=== PATIENT | male | born 1990 | race Caucasian/White ===

== ENCOUNTER 2019-05-06 12:13 | Emergency (ER) | payer MEDICARE, MEDICAID ==
[~2019-05-06] VITALS: Ht 180.3 cm; Wt 93.2 kg
[2019-05-06] MEDS ORDERED: METHOCARBAMOL 500 MG TAB PO ONE (14:00)
[2019-05-06] MEDS ORDERED: KETOROLAC 60 MG/2 ML VIAL (J1885) IM ONE (14:00)
--- NOTE | 2019-05-06 14:56 | REP ---
REASON: Pain after trauma. PRIORS: None. FINDINGS: Three views of the shoulder were performed. The acromioclavicular and glenohumeral relationships are within normal limits. There is no acute fracture or destructive osseous lesions. Electronically Signed by Jake Mills DO 05/06/2019 04:22 P
--- NOTE | 2019-05-06 14:56 | REP ---
REASON: Pain after trauma. PRIORS: None. FINDINGS: No acute fracture or destructive osseous lesion. Electronically Signed by Jake Mills DO 05/06/2019 04:22 P
--- NOTE | 2019-05-06 14:57 | REP ---
REASON: Pain after trauma. PRIORS: None. FINDINGS: There is no acute fracture, dislocation, subluxation or joint effusion. Electronically Signed by Jake Mills DO 05/06/2019 04:22 P
[2019-05-06 15:10] VITALS: BP 117/74
[2019-05-06] MEDS ORDERED: KETO10TAB PO (15:16)
[2019-05-06] MEDS ORDERED: METH1TAB40 PO (15:16)
[2019-05-06] MEDS ORDERED: DICL1GEL3 TOP (15:17)
== END 2019-05-06 15:28 | disposition home or self-care (01) ==
LOC: M ED 12:13
DX: S43.491A Other sprain of right shoulder joint, initial encounter (principal); W19.XXXA Unspecified fall, initial encounter; Y92.018 Other place in single-family (private) house as the place of occurrence of the external cause; F17.210 Nicotine dependence, cigarettes, uncomplicated
CPT/HCPCS: 73000; 73030; 73080; 96372; 99283; J1885

== ENCOUNTER 2020-02-08 15:51 | Emergency (ER) | payer MEDICARE, MEDICAID ==
[~2020-02-08 15:51] MED LIST: DICL1GEL3 TOP; KETO10TAB PO; METH1TAB40 PO
[2020-02-08] MEDS ORDERED: ONDANSETRON 4MG/2ML VIAL As Ordered ONE (19:05)
[2020-02-08] MEDS ORDERED: MORPHINE 4 MG/ML 1ML VIAL/SYRINGE (J2270) As Ordered ONE (19:05)
[2020-03-18 09:14] LABS: HEMATOCRIT 43.3 % (42.0-52.0); MEAN CORPUSCULAR HEMOGLOBIN 30.5 pg (27.0-33.0); MEAN CORPUSCULAR HGB CONC 34.6 g/dl (32.0-36.5); MEAN CORPUSCULAR VOLUME 88.2 fl (80.0-96.0); PLATELET COUNT, AUTOMATED 206 10^3/uL (150-450); RED BLOOD COUNT 4.91 10^6/uL (4.30-6.10); WHITE BLOOD COUNT 10.9 10^3/uL (4.0-10.0)
[2020-03-19 21:42] LABS: BLOOD UREA NITROGEN 15 MG/DL (7-18); CALCIUM LEVEL 9.3 MG/DL (8.5-10.1); CARBON DIOXIDE LEVEL 26 MEQ/L (21-32); CHLORIDE LEVEL 107 MEQ/L (98-107); CK-MB VALUE MASS 3.1 NG/ML (<3.6); CPK CREATINE PHOSPHOKINASE 706 U/L (39-308); CREATININE FOR GFR 0.95 MG/DL (0.70-1.30); GLOMERULAR FILTRATION RATE > 60.0 (>60); GLUCOSE, FASTING 107 MG/DL (70-100); MB/CK RELATIVE INDEX 0.44 (< OR =4); POTASSIUM SERUM 3.8 MEQ/L (3.5-5.1); SODIUM LEVEL 143 MEQ/L (136-145); TROPONIN I < 0.02 NG/ML (< 0.10)
--- NOTE | 2020-03-23 12:05 | ECGEPIP ---
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
== END 2020-02-08 21:09 | disposition home or self-care (01) ==
LOC: M ED 15:51
DX: R07.89 Other chest pain (principal); R74.8 Abnormal levels of other serum enzymes; R11.2 Nausea with vomiting, unspecified; F17.200 Nicotine dependence, unspecified, uncomplicated; Z88.6 Allergy status to analgesic agent
CPT/HCPCS: 71046; 80048; 82550; 82553; 84484; 85027; 85379; 93005; 96374; 96375; 99284; J2270; J2405

== ENCOUNTER 2020-06-14 22:36 | Emergency (ER) | payer MEDICARE, MEDICAID ==
[~2020-06-14] VITALS: Ht 177.8 cm; Wt 104.6 kg
[2020-06-14] MEDS ORDERED: AMOX875T PO (22:43)
[2020-06-15] MEDS ORDERED: CLEO300C2 PO (00:10)
[2020-06-15] MEDS ORDERED: PRED20TA PO (00:10)
[2020-06-15] MEDS ORDERED: diphenhydrAMINE 50MG CAP PO ONE (00:15)
[2020-06-15] MEDS ORDERED: NORCO 5/325MG TABLET (BULK FOR ED) PO ONE (00:15)
[2020-06-15] MEDS ORDERED: predniSONE 20 MG TAB PO ONE (00:15)
[2020-06-15] MEDS ORDERED: CLINDAMYCIN 150MG CAPSULE PO ONE (00:15)
[2020-06-15] MEDS ORDERED: NORCO, ANEXSIA 5/325MG TABLET (HYDROcodone/ACETAMINOPHEN) PO ONE (00:15)
[2020-06-15 00:21] VITALS: BP 153/86
== END 2020-06-15 00:30 | disposition home or self-care (01) ==
LOC: M ED 22:36
DX: K04.7 Periapical abscess without sinus (principal); K02.9 Dental caries, unspecified; J45.909 Unspecified asthma, uncomplicated; Z87.891 Personal history of nicotine dependence; Z79.899 Other long term (current) drug therapy

== ENCOUNTER → 2020-07-29 | Outpatient (CLI) | payer SELFPAY ==
[~2020-07-29] MED LIST changes: +AMOX875T PO; +CLEO300C2 PO; +PRED20TA PO
== END ==
LOC: M LABSMTC 08:32
PROVIDERS: ATTEND Pediatrics
DX: Z20.822 Contact with and (suspected) exposure to COVID-19 (principal)

== ENCOUNTER 2020-11-21 11:41 | Emergency (ER) | payer MEDICARE, MEDICAID ==
[~2020-11-21] VITALS: Ht 180.3 cm; Wt 100.5 kg
[~2020-11-21 11:41] MED LIST changes: +METH-1164 PO; -METH1TAB40 PO
--- NOTE | 2020-11-21 13:01 | REP ---
INDICATION: medial pain, gave out COMPARISON: None TECHNIQUE: Five views FINDINGS: The compartments are symmetric and relatively well maintained. There is no acute fracture or destructive osseous lesion. IMPRESSION: Negative exam <Electronically signed by Jake Mills > 11/21/20 [id number]
[2020-11-21] MEDS ORDERED: NAPR-837 PO (13:41)
[2020-11-21 13:51] VITALS: BP 133/75
--- NOTE | 2020-11-22 02:40 | ECGEPIP ---
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
== END 2020-11-21 14:12 | disposition home or self-care (01) ==
LOC: M ED 11:41
DX: S83.91XA Sprain of unspecified site of right knee, initial encounter (principal); X58.XXXA Exposure to other specified factors, initial encounter; Y92.89 Other specified places as the place of occurrence of the external cause; Y93.89 Activity, other specified; Y99.8 Other external cause status

== ENCOUNTER 2020-12-15 17:58 | Emergency (ER) | payer MEDICARE, MEDICAID ==
[~2020-12-15] VITALS: Ht 180.3 cm; Wt 95.5 kg
[~2020-12-15 17:58] MED LIST changes: +NAPR-837 PO
[2020-12-15] MEDS ORDERED: OXYC1TAB23 PO (18:05)
[2020-12-15] MEDS ORDERED: NS 1,000 ML IV ONE (20:10)
[2020-12-15 20:46] LABS: BASO # 0.1 10^3/uL (0.0-0.2); BASO % 0.5 % (0.0-1.0); EOS # 0.6 10^3/uL (0.0-0.5); EOS % 5.4 % (0.0-3.0); HEMATOCRIT 42.4 % (42.0-52.0); HEMOGLOBIN 14.8 g/dl (13.5-17.5); LYMPH # 2.7 10^3/uL (1.5-5.0); LYMPH % 26.2 % (24.0-44.0); MEAN CORPUSCULAR HEMOGLOBIN 30.2 pg (27.0-33.0); MEAN CORPUSCULAR HGB CONC 34.9 g/dl (32.0-36.5); MEAN CORPUSCULAR VOLUME 86.5 fl (80.0-96.0); MONO # 0.8 10^3/uL (0.0-0.8); MONO % 7.5 % (2.0-8.0); NEUTROPHILS # 6.1 10^3/uL (1.5-8.5); PLATELET COUNT, AUTOMATED 253 10^3/uL (150-450); WHITE BLOOD COUNT 10.2 10^3/uL (4.0-10.0)
[2020-12-15] MEDS ORDERED: KETOROLAC 30 MG/ML 1ML VIAL IV ONE (20:50)
[2020-12-15 21:11] LABS: ALBUMIN 3.9 GM/DL (3.2-5.2); BILIRUBIN,DIRECT 0.1 MG/DL (0.0-0.2); BILIRUBIN,TOTAL 0.3 MG/DL (0.2-1.0); TOTAL PROTEIN 7.4 GM/DL (6.4-8.2)
--- NOTE | 2020-12-15 21:32 | REPVR ---
PROCEDURE INFORMATION: Exam: XR Chest Exam date and time: 12/15/2020 8:07 PM Age: 30 years old Clinical indication: SOB, trauma TECHNIQUE: Imaging protocol: XR of the chest. Views: 2 views. COMPARISON: CR Chest, 2 view PA, Lat 02/08/2020 4:17 PM FINDINGS: Lungs: Unremarkable. No consolidation. No pulmonary edema. Pleural spaces: Unremarkable. No pleural effusion. No pneumothorax. Heart/Mediastinum: Unremarkable. No cardiomegaly. Bones/joints: Unremarkable. IMPRESSION: No acute findings. Electronically signed by: Rene Billings On 12/15/2020 21:31:47 PM
[2020-12-15 21:57] VITALS: BP 110/52
[2020-12-15 22:34] LABS: APPEARANCE, URINE CLEAR (CLEAR); BACTERIA, URINE AUTO NEGATIVE (NEGATIVE); BILIRUBIN, URINE AUTO NEGATIVE (NEGATIVE); BLOOD, URINE BLOOD NEGATIVE (NEGATIVE); COLOR, URINE YELLOW (YELLOW); GLUCOSE, URINE (UA) AUTO NEGATIVE (NEGATIVE); KETONE, URINE AUTO NEGATIVE (NEGATIVE); LEUKOCYTE ESTERASE, URINE AUTO NEGATIVE (NEGATIVE); NITRITE, URINE AUTO NEGATIVE (NEGATIVE); PROTEIN, URINE AUTO NEGATIVE (NEGATIVE); RBC, URINE AUTO 2 /HPF (0-3); SPECIFIC GRAVITY URINE AUTO 1.019 (1.002-1.035); SQUAMOUS EPITHELIAL CELL UR AU 0 /HPF (0-6); WBC, URINE AUTO 1 /HPF (0-3)
[2020-12-15] MEDS ORDERED: KETO10TAB PO (22:38)
[2020-12-15 22:57] LABS: AMPHETAMINES LEVEL URINE NEGATIVE (NEGATIVE); BARBITURATES URINE NEGATIVE (NEGATIVE); BENZODIAZEPINES URINE NEGATIVE (NEGATIVE); CANNABINOIDS URINE NEGATIVE (NEGATIVE); COCAINE METABOLITE URINE NEGATIVE (NEGATIVE); METHADONE URINE NEGATIVE (NEGATIVE); OPIATES URINE NEGATIVE (NEGATIVE); PHENCYCLIDINE URINE NEGATIVE (NEGATIVE)
== END 2020-12-15 22:45 | disposition home or self-care (01) ==
LOC: M ED 17:58
DX: G89.11 Acute pain due to trauma (principal); M79.604 Pain in right leg; R10.9 Unspecified abdominal pain; W13.2XXD Fall from, out of or through roof, subsequent encounter; Y92.9 Unspecified place or not applicable; Y93.9 Activity, unspecified; Y99.0 Civilian activity done for income or pay; R06.02 Shortness of breath; J45.909 Unspecified asthma, uncomplicated
CPT/HCPCS: 71046; 80047; 80076; 80307; 81001; 83690; 85025; 96361; 96374; 99284; J1885

== ENCOUNTER 2022-05-16 21:50 | Emergency (ER) | payer MEDICARE, MEDICAID ==
[~2022-05-16] VITALS: Ht 180.3 cm; Wt 97.7 kg
[~2022-05-16 21:50] MED LIST changes: +OXYC1TAB23 PO
[2022-05-16 21:51] VITALS: BP 144/77
== END 2022-05-17 02:55 | disposition left against medical advice (07) ==
LOC: M ED 21:50
DX: Z53.21 Procedure and treatment not carried out due to patient leaving prior to being seen by health care provider (principal)